=== PATIENT | male | born 1985 | race Caucasian/White ===

== ENCOUNTER 2022-08-15 11:47 | Emergency (ER) | payer BC ==
[~2022-08-15] VITALS: Ht 185.4 cm; Wt 98.6 kg
[2022-08-15] MEDS ORDERED: AMOXICILLIN500 MG PO (13:42)
[2022-08-15] MEDS ORDERED: VALACYCLOVIR1000 MG PO (14:24)
[2022-08-15] MEDS ORDERED: HYDROCODON-ACE1 EA10 PO (16:06)
== END 2022-08-15 16:21 | disposition home or self-care (01) ==
LOC: ED 11:47
DX: B00.2 Herpesviral gingivostomatitis and pharyngotonsillitis (principal); Z88.2 Allergy status to sulfonamides; Z88.1 Allergy status to other antibiotic agents; Z79.899 Other long term (current) drug therapy
CPT/HCPCS: 36415; 80053; 85025; 96374; 99283-25; J1885; J7030